=== PATIENT | male | born 1945 | race Caucasian/White ===

== ENCOUNTER 2017-02-22 23:45 | Emergency (ER) | payer MEDICARE, OTHER ==
[~2017-02-22 23:45] MED LIST: ASA CHILDREN'S81 MG PO; B COMPLETE1 EACH PO; CALCIUM500 MG PO; CIPRO500 MG PO; COREG3.125 MG PO; DAILY MULTIPLE1 EAC1 PO; FLAX SEED OIL1000 MG PO; GLUCOSAMINE &1 EAC1 PO; LOTENSIN DPS20 MG PO; POTASSIUM OTC PO; PROTEIN DRINK PO
--- NOTE | 2017-02-26 00:47 | ER ---
ADMIT: 02/22/2017 RM/LOC: ER [facility] MR#: [id number] [address] FELICITA HOROWITZ [address] [place] [address] Emergency Room Report SEX: M AGE: 71 : 1945 DATE: 02/22/2017 HISTORY OF PRESENT ILLNESS: The patient is a 71-year-old male with a past medical history of hypertension, coronary artery disease, status post one stent on Xarelto, who came to the ER with 4 to 5 hours of not feeling right. The patient states he does not feel right and he is a little bit lightheaded when he stands up, but he denies any obvious problem with the balance. The patient denies any headaches, visual changes, new weakness or numbness, chest pain, or shortness of breath. PHYSICAL EXAMINATION: GENERAL: The patient was in no pain or distress. Alert and oriented to person, place, and time. HEAD AND NECK: Normal. HEENT: Extraocular movement is normal. Pupils are 3 mm, reactive to light. TMs are normal bilaterally. Hearing is grossly equal and normal bilaterally. The patient has no nystagmus. In the neck, I did not hear any bruit. CHEST: The patient has normal S1 and S2 without any gallops. LUNGS: Clear. ABDOMEN: Soft. EXTREMITIES: I did not see any swelling or pain or tenderness. Range of motion in all extremities are normal. NEUROLOGIC: Motor, sensory, cerebellar test, and cranial nerves are all normal. The patient had negative orthostatic vitals. DIAGNOSTIC DATA: EKG was normal sinus rhythm without any abnormality. Chest x-ray was negative. CT of the head was negative for any acute changes or bleeding. The patient has sodium of 142 with potassium of 4.1. Creatinine was elevated, BUN of 28, and creatinine of 1.5. The patient received half a liter of normal saline. The patient was reassessed and states sometimes intermittently, he feels the same lightheadedness. Romberg test was also negative. I talked to ADMIT: 02/22/2017 RM/LOC: ER [facility] MR#: [id number] [address] FELICITA HOROWITZ [address] [place] [address] Emergency Room Report SEX: M AGE: 71 : 1945 [place], who is covering for Dr. Hooper, and we both agreed that at this stage, the patient has two choices either follows up with the primary in the office which is our preference or if he needs to be further followed up here. The patient states he prefers to go to the primary care doctor in the morning. The patient was given a dose of meclizine in the ER, was sent home with a prescription for meclizine. The patient was informed that there is a very very minor chance that it could be the beginning or the presentation of stroke and needs to be followed up. The patient acknowledged he understood the risks and benefits and the patient stated that he is going to home and in the morning, he would call Dr. Hooper's office for further followups and treatments. The patient was informed that he is more than welcome to come back to ER if there is any questions or concerns or if he has any symptoms. Johan Smith MD/ sarwat JOB #: [id number] CC: Johan Smith MD, Attending Physician Ian Hooper MD, Family Physician
== END 2017-02-23 02:45 | disposition home or self-care (01) ==
LOC: ER 23:45
DX: R42 Dizziness and giddiness (principal); I10 Essential (primary) hypertension; E78.5 Hyperlipidemia, unspecified; E03.9 Hypothyroidism, unspecified; I25.10 Atherosclerotic heart disease of native coronary artery without angina pectoris; Z95.5 Presence of coronary angioplasty implant and graft; Z79.82 Long term (current) use of aspirin; Z79.899 Other long term (current) drug therapy